=== PATIENT | female | born 1985 | race Caucasian/White ===

== ENCOUNTER 2019-09-09 04:20 | Emergency (ER) | payer SELFPAY ==
[~2019-09-09] VITALS: Ht 162.6 cm; Wt 74.1 kg
[~2019-09-09 04:20] MED LIST: CIPRO
[2019-09-09 04:30] VITALS: BP 109/77; PULSE 108; TEMP 98.1
[2019-09-09] MEDS ORDERED: EFFEXOR 75M75 MG/TAB PO (04:35)
[2019-09-09] MEDS ORDERED: KLONOPIN 1MG1 MG PO (04:35)
[2019-09-09] MEDS ORDERED: LAMICTAL200 MG PO (04:35)
[2019-09-09] MEDS ORDERED: LYRICA 25MG CAP25 MG PO (04:35)
== END 2019-09-09 06:00 | disposition home or self-care (01) ==
LOC: COL.ER 04:20
DX: S61.210A Laceration without foreign body of right index finger without damage to nail, initial encounter (principal); F17.210 Nicotine dependence, cigarettes, uncomplicated; W26.0XXA Contact with knife, initial encounter; Y93.89 Activity, other specified; Y92.009 Unspecified place in unspecified non-institutional (private) residence as the place of occurrence of the external cause